=== PATIENT | female | born 1975 | race Caucasian/White ===

== ENCOUNTER 2017-03-02 16:00 | Observation (INO) ==
[2017-03-02] MEDS ORDERED: Aspirin 81 MG TAB.CHEW PO ONE (16:03)
--- NOTE | 2017-03-02 16:10 | Emergency Department Note ---
Disposition Clinical Impression: Chest pain Qualifiers: Chest pain type: unspecified Qualified Code(s): R07.9 - Chest pain, unspecified Disposition: Admitted As Inpatient Condition: Fair Time of Disposition: 16:16 Chest Pain HPI - General Stated Complaint: CP Time Seen by Provider: 03/02/17 16:03 Source: patient Mode of arrival: ambulatory Limitations: no limitations Vital Signs Reviewed: Yes Nursing Notes Reviewed: Yes - History of Present Illness HPI Narrative: Nontoxic-appearing 41-year-old female presents for evaluation of substernal chest pain that radiates into the interscapular region and left upper extremity. Symptoms began earlier this morning and have been persistent. Symptoms began as she was walking outside to get into her car to go to work. This was shortly thereafter accompanied with a sensation of palpitations. She complains of nausea and several episodes of diaphoresis as well. She denies any pleuritic component to this chest pain. She denies any fever, upper respiratory symptoms, cough, hemoptysis, vomiting. She denies any known aggravating or alleviating factors. Pt complaint: chest pain Onset (ago): hour(s) (Earlier this morning) Duration: constant Onset: during rest Pain Location: substernal Severity: severe Severity scale (1-10): 8 Quality: sharp Pain Radiation: LUE, other (Interscapular) Improves with: nothing Worsens with: nothing Associated symptoms: Reports: nausea, diaphoresis, palpitations. Denies: vomiting, dyspnea, cough - Related Data Home Medications Medication Instructions Recorded Confirmed Acetaminophen [Tylenol] 1,000 mg PO BID PRN 07/27/16 07/27/16 Biotin 1 mg PO DAILY 07/27/16 07/27/16 Cyanocobalamin (Vitamin B-12) 1,000 mcg SL DAILY 07/27/16 07/27/16 [Vitamin B-12] Ibuprofen [Motrin] 800 mg PO BID 07/27/16 07/27/16 Ranitidine HCl [Zantac] 150 mg PO DAILY 07/27/16 07/27/16 Allergies Allergy/AdvReac Type Severity Reaction Status Date / Time Amoxicillin [From Augmentin] Allergy Rash Verified 03/02/17 16:12 celecoxib [From Celebrex] Allergy Rash Verified 03/02/17 16:12 clavulanic acid Allergy Rash Verified 03/02/17 16:12 [From Augmentin] codeine Allergy Rash Verified 03/02/17 16:12 [From Tylenol-Codeine #3] Hylan G-F 20 [From Synvisc] Allergy Blister Verified 03/02/17 16:12 naproxen [From Naprosyn] Allergy Rash Verified 03/02/17 16:12 rofecoxib [From Vioxx] Allergy Rash Verified 03/02/17 16:12 All systems ED: reviewed and negative except as stated. Constitutional: Denies: fever, chills, weakness, weight change Eyes: Denies: eye pain, eye discharge, vision change ENT ED: Denies: ear pain, throat pain, dental pain, hearing loss, epistaxis, congestion, dysphagia Cardiovascular: Reports: as per HPI, chest pain, palpitations. Denies: dyspnea on exertion, edema, syncope Respiratory: Denies: cough, dyspnea, wheezes, hemoptysis, stridor Gastrointestinal: Denies: abdominal pain, nausea, vomiting, diarrhea, constipation, hematemesis, melena, hematochezia Genitourinary: Denies: dysuria, frequency, hematuria, discharge Musculoskeletal: Denies: back pain, neck pain, arthralgia, myalgia Integumentary: Denies: rash, abrasion, lesions Neurological: Denies: headache, weakness, numbness, paresthesias, confusion, abnormal gait, vertigo Psychiatric: Denies: anxiety, depression, suicidal thoughts, homicidal thoughts , auditory hallucinations, visual hallucinations Endocrine: Denies: fatigue Hematological/Lymphatic: Denies: easy bleeding, easy bruising Allergic/Immunologic: Denies: facial swelling, urticaria Chest Pain PMH - Past Medical History Medical history: Reports: GERD, hyperlipidemia Surgical history: Reports: , cholecystectomy, orthopedic, other - Social History Smoking Status: Former smoker Alcohol use: Reports: recent Drug use: Reports: none Physical Exam - General Limitations: no limitations General appearance: alert, in no apparent distress - Head Head exam: atraumatic, normocephalic, normal inspection - Eye Eye exam: Present: normal appearance, PERRL, EOMI. Absent: nystagmus - ENT ENT exam: mucous membranes moist - Neck Neck exam: Present: normal inspection, full ROM, trachea midline - Chest Chest inspection: Present: normal inspection, symmetric chest wall rise. Absent : tenderness - Respiratory Respiratory exam: Present: normal lung sounds bilaterally. Absent: respiratory distress, wheezes, stridor, accessory muscle use, prolonged expiratory phase - Cardiovascular Cardiovascular exam: Present: regular rate, normal rhythm, normal heart sounds - Abdominal Exam Abdominal exam: Present: soft, Non-Tender, normal bowel sounds - Extremities Exam Extremities exam: Present: normal inspection, full ROM. Absent: tenderness, pedal edema - Neurological Exam Neurological exam: Present: alert, oriented X3 - Psychiatric Psychiatric exam: Present: normal affect, normal mood - Skin Skin exam: Present: warm, dry, intact, normal color Course Vital Signs Temperature 97.8 F 03/02/17 16:08 Pulse Rate 83 03/02/17 16:08 Respiratory Rate 18 03/02/17 16:08 Blood Pressure 126/92 03/02/17 16:08 O2 Sat by Pulse Oximetry 100 03/02/17 16:08 Temperature 97.8 F 03/02/17 16:08 Pulse Rate 83 03/02/17 16:08 Respiratory Rate 18 03/02/17 16:08 Blood Pressure 126/92 03/02/17 16:08 O2 Sat by Pulse Oximetry 100 03/02/17 16:08 Oxygen Delivery Oxygen Delivery Room Air Chest Pain - Medical Records Medical records reviewed: Yes I reviewed the patient's medical records. Ceferino - Ceferino Situation: Demographics, MOA Background: Presenting Complaint, Relevant PMH, Meds, & Allergies Assessment: Vital Signs, Course and respsone to treatment, Exam Concerns, Patient/Family Expectation, Pertinant Lab Results, Outstanding Labs Recommendation: Barrier(s) to disposition, Recommendation based on pending studies, treatments, or consults S.Larissa Report Given to: Dr. Pool De La Vega Repor Time: 16:16
--- NOTE | 2017-03-02 16:33 | Emergency Department Note ---
START Narrative - START START: For this encounter, I have reviewed the SPEECH SCIENTIST or PA documentation, treatment plan, and medical decision making; and I have had face to face time with this patient. Briefly, 41-year-old female presents emergency room with chest pain. 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 She woke up today and had some vomiting and nausea and diaphoresis. This transitioned into palpitations and chest pain. Pain radiated down into her left arm. She has no history of cardiac disease. She states she has a history of hypercholesterolemia. Currently she rates her pain 8 out of 10. Substernal radiates into the left arm and left neck. EKG is unremarkable. Plan at this time is to admit the patient to observation. I will give her nitroglycerin here. She received aspirin already. Patient needs to be admitted for further ACS workup. Patient was initially seen by the physician loan officer assistant. EKG shows a rate of 84. Normal sinus rhythm. Normal axis. NV interval 166. QRS 77. QTC 374. No signs of acute ischemia.
[2017-03-02] MEDS: Nitroglycerin 0.4 MG TAB.SUBL SL PRN ×2 (16:36→16:45)
[2017-03-02 16:55] LABS: Basophils # 0.1 K/mcL (0.0-0.2); Basophils % 0.6 %; Eosinophils # 0.2 K/mcL (0.0-0.6); Eosinophils % 2.1 %; Hematocrit 41.6 % (35.3-44.9); Immature Granulocytes % 0.6 % (0-4); Lymphocytes # 2.7 K/mcL (0.6-4.6); Lymphocytes % 31.1 %; Mean Corpuscular HGB Conc 33.7 g/dL (31.6-35.5); Mean Platelet Volume 9.8 fL (9.4-12.4); Monocytes # 0.8 K/mcL (0.0-1.3); Monocytes % 8.6 %; Platelet Count 337 K/mcL (140-400); Red Blood Count 4.52 M/mcL (3.82-4.97); Red Cell Distribution Width 11.9 % (11.5-14.5)
[2017-03-02 17:05] LABS: Prothrombin Time 10.4 Seconds (9.4-12.1)
[2017-03-02 17:07] LABS: Activated Partial Thrombo Time 34.1 Seconds (26.0-36.0)
[2017-03-02 17:12] LABS: BUN/Creatinine Ratio 11 (6-26); Blood Urea Nitrogen 9 mg/dL (7-20); Calcium 9.2 mg/dL (8.6-10.8); Carbon Dioxide 24 mEq/L (19-29); Chloride 108 mEq/L (98-109); Glucose 97 mg/dL (70-99); Osmolality,Calculated 289 (280-300); Potassium 3.9 mEq/L (3.5-4.5); Sodium 140 mEq/L (136-145); eGFR For African Americans > 60 (> 60); eGFR For Non-African Americans > 60 (> 60)
[2017-03-02] MEDS ORDERED: Acetaminophen 325 MG TABLET PO PRN (20:03)
[2017-03-02] MEDS ORDERED: Naloxone 0.4 MG/ML INJ IVP PRN (20:03)
[2017-03-02] MEDS ORDERED: Ondansetron 4 MG/2 ML VIAL IVP PRN (20:03)
[2017-03-02] MEDS ORDERED: *HR* Morphine 2 MG/ML SYRINGE IVP PRN (20:03)
[2017-03-02] MEDS ORDERED: SUMAtriptan succinate 50 MG TABLET PO PRN (20:05)
--- NOTE | 2017-03-02 20:09 | Internal Med History&Physical ---
Date of Encounter: 03/02/17 Time of Encounter: 20:07 Assessment and Plan (1) Chest pain Current visit: Yes Status: Acute Order CT scan of the chest to rule out dissection Continue telemetry, follow troponins, we will start aspirin once dissection has been ruled out If the CT scan is negative we will schedule stress test in the morning, hold propranolol for now Check a lipid panel in the morning, may continue morphine and nitroglycerin Omeprazole for GI prophylaxis and sequential compression devices for DVT prophylaxis, admitted for observation, full code. Time spent on this admission 45 minutes Qualifiers: Chest pain type: unspecified Qualified Code(s): R07.9 - Chest pain, unspecified (2) Hyperlipidemia Current visit: Yes Status: Acute Check lipid panel in the morning Qualifiers: Hyperlipidemia type: pure hypercholesterolemia Qualified Code(s): E78.00 - Pure hypercholesterolemia, unspecified; E78.0 - Pure hypercholesterolemia (3) GERD (gastroesophageal reflux disease) Current visit: Yes Status: Acute Qualifiers: Esophagitis presence: without esophagitis Qualified Code(s): K21.9 - Gastro -esophageal reflux disease without esophagitis (4) Migraines Current visit: Yes Status: Acute Hold propanolol for stress test in the morning Qualifiers: Migraine type: without aura Status migrainosus presence: without status migrainosus Intractability: not intractable Qualified Code(s): G43.009 - Migraine without aura, not intractable, without status migrainosus (5) Asthma Current visit: Yes Status: Acute Qualifiers: Asthma severity: unspecified severity Asthma persistence: unspecified Asthma complication type: unspecified Qualified Code(s): J45.909 - Unspecified asthma, uncomplicated Internal Medicine - H&P: HPI Chief complaint: Chest pain Admitted From: Emergency Dept History of present illness: Ms. Lr is a 41 year old female with a past medical history of hyperlipidemia , GERD, remote history of tobacco use, depression, anxiety, started complaining of chest pain pressure-like midsternal [place] today at 9 AM 8 out of 10 in intensity that radiated to her interscapular area and is still present. Received nitroglycerin in the partially relieved the pain accompanied with diaphoresis and nausea. Chest x-ray and EKG are unremarkable, troponin is normal. So the patient has not gone away patient agreed to have a CT scan of the chest to rule out a dissection. Denies any other complaint at the moment Past Med Surg Social Fam HX - Past Medical History Medical history: GERD, hyperlipidemia, other (Remote history of tobacco use, depression, anxiety, asthma, fibromyalgia, migraines) Psychiatric history: no psych history - Past Surgical History Surgical History: , cholecystectomy, orthopedic, other, other (Left cubital stress fracture, tubal ligation, left shoulder and right knee arthroscopies) - Social History Smoking Status: Former smoker Smokeless Tobacco Status: No Alcohol use: recent Drug use: none - Family History Father Hx Family Cardiac Disorders: Yes (HI) - Additional Family History Additional family history: Father who had a myocardial infarction at the age of 42, brother with heart disease Internal Medicine - H&P: Meds Acetaminophen [Tylenol] 1,000 mg PO QAM 07/27/16 [History] Biotin 1 mg PO DAILY 07/27/16 [History] Acetaminophen [Tylenol] 1,000 mg PO Q8H PRN 03/02/17 [History] Metaxalone [Skelaxin] 800 mg PO TID PRN 03/02/17 [History] Multivitamin [One Daily Essential] 1 each PO DAILY 03/02/17 [History] Omeprazole [PriLOSEC] 40 mg PO DAILY 03/02/17 [History] Ondansetron ODT [Zofran ODT] 4 mg PO Q8H PRN 03/02/17 [History] Propranolol HCl 40 mg PO BID 03/02/17 [History] SUMAtriptan succinate [Imitrex] 50 mg PO Q2H PRN MDD 100 mg 03/02/17 [History] 3 Allergy/AdvReac Type Severity Reaction Status Date / Time Amoxicillin [From Augmentin] Allergy Rash Verified 03/02/17 16:12 celecoxib [From Celebrex] Allergy Rash Verified 03/02/17 16:12 clavulanic acid Allergy Rash Verified 03/02/17 16:12 [From Augmentin] codeine Allergy Rash Verified 03/02/17 16:12 [From Tylenol-Codeine #3] Hylan G-F 20 [From Synvisc] Allergy Blister Verified 03/02/17 16:12 naproxen [From Naprosyn] Allergy Rash Verified 03/02/17 16:12 rofecoxib [From Vioxx] Allergy Rash Verified 03/02/17 16:12 All Systems PM: A 10-system review of systems was performed and is negative for pertinent findings except as documented above in the HPI. Review of systems: No shortness of breath, no dizziness, other systems out of the 10 reviewed were negative - Constitutional Vitals: Temp Pulse Resp BP Pulse Ox 97.8 F 80 17 109/71 95 03/02/17 19:52 03/02/17 19:52 03/02/17 19:52 03/02/17 19:52 03/02/17 19:52 General appearance: Present: A&O X 3 - Head Head exam: Present: atraumatic, normocephalic - Eye Eye exam: Present: PERRL, conjuntiva pink, sclera anicteric Pupils: Present: PERRL - Neck Neck exam general surgery: Present: supple, trachea midline. Absent: lymphadenopathy - Respiratory Respiratory exam: Present: CTAB. Absent: accessory muscle use, rales, rhonchi, wheezes - Cardiovascular Cardiovascular exam: Present: RRR, +S1, +S2. Absent: diastolic murmur, gallop, rubs, systolic murmur - GI/Abdominal GI/Abdominal exam: Present: normal bowel sounds, soft, no peritoneal signs. Absent: distended, tenderness - Extremities Exam Extremities exam: Present: warm, radial pulses palpable and symmetrical. Absent : calf tenderness, cyanotic, pedal edema - Neurological Exam Neurological exam: Present: CN II-XII intact, oriented X3, no focal deficits. Absent: pronater drift, facial droop, speech deficit - Skin Skin exam: Present: dry, intact Internal Med - H&P Results - Labs CBC & Chem 7: 03/02/17 16:33 03/02/17 16:33
[2017-03-02] MEDS ORDERED: Nitroglycerin 0.4 MG TAB.SUBL SL PRN (20:12)
[2017-03-02] MEDS ORDERED: 0.9 % Sodium Chloride 1,000 ML IVC SCH (20:15)
[2017-03-03] MEDS ORDERED: *HR* Morphine 2 MG/ML SYRINGE IVP PRN (00:12)
[2017-03-03] MEDS ORDERED: *HR* Morphine 2 MG/ML SYRINGE ONE (00:16)
[2017-03-03 03:16] LABS: Basophils % 0.3 %; Eosinophils # 0.3 K/mcL (0.0-0.6); Eosinophils % 2.8 %; Hematocrit 36.5 % (35.3-44.9); Immature Granulocytes % 0.3 % (0-4); Lymphocytes # 3.6 K/mcL (0.6-4.6); Mean Corpuscular Hemoglobin 31.2 pg (28.0-33.3); Mean Corpuscular Volume 91.7 fL (83.0-100.0); Mean Platelet Volume 9.9 fL (9.4-12.4); Monocytes # 0.8 K/mcL (0.0-1.3); Monocytes % 9.5 %; Platelet Count 270 K/mcL (140-400); Red Blood Count 3.98 M/mcL (3.82-4.97); Red Cell Distribution Width 11.9 % (11.5-14.5); Segmented Neutrophils % 46.1 %
[2017-03-03 03:22] LABS: Hemoglobin 12.4 g/dL (11.5-15.4)
[2017-03-03 03:33] LABS: BUN/Creatinine Ratio 13 (6-26); Blood Urea Nitrogen 10 mg/dL (7-20); Calcium 8.8 mg/dL (8.6-10.8); Carbon Dioxide 23 mEq/L (19-29); Chloride 109 mEq/L (98-109); Chol/HDL Ratio 5.2 (0-4.9); Cholesterol 182 mg/dL (< 200); Glucose 97 mg/dL (70-99); HDL Cholesterol 35 mg/dL (40-59); LDL Cholesterol,Calculated 107 mg/dL (0-99); Osmolality,Calculated 289 (280-300); Potassium 3.8 mEq/L (3.5-4.5); Sodium 140 mEq/L (136-145); Triglycerides 198 mg/dL (< 150); eGFR For African Americans > 60 (> 60); eGFR For Non-African Americans > 60 (> 60)
[2017-03-03] MEDS ORDERED: Regadenoson 0.4 MG/5 ML SYRINGE IVP ONE (06:00)
--- NOTE | 2017-03-03 08:15 | Electrocardiograph Report ---
[place] [id number] Test Date: 2017-03-02 Pat Name: Jeniffer Lr Department: 104 Room: 3B Gender: F [employer] Drying Machine Operator: TAVO : 1975 Requested By: Job Martin Order Number: [id number] Reading MD: Trinity Almeida Measurements Intervals [place] Rate: 84 P: 11 W[place]: 166 QRS: 53 QRSD: 77 T: 26 QT: 333 QTc: 374 Interpretive Statements SINUS RHYTHM WITH SINUS ARRHYTHMIA Electronically Signed On 03-03-2017 8:13:59 EDT by Trinity Almeida
[2017-03-03 11:57] VITALS: BP 111/74
--- NOTE | 2017-03-03 13:07 | Discharge Summary ---
Date of Encounter: 03/03/17 Time of Encounter: 13:04 - Discharge Diagnosis (1) Chest pain Priority: Primary Status: Ruled-out Qualifiers: Chest pain type: unspecified Qualified Code(s): R07.9 - Chest pain, unspecified (2) GERD (gastroesophageal reflux disease) Priority: Secondary Status: Acute Qualifiers: Esophagitis presence: without esophagitis Qualified Code(s): K21.9 - Gastro -esophageal reflux disease without esophagitis (3) Migraines Priority: Secondary Status: Acute Qualifiers: Migraine type: without aura Status migrainosus presence: without status migrainosus Intractability: not intractable Qualified Code(s): G43.009 - Migraine without aura, not intractable, without status migrainosus - Discharge Medications Prescriptions: Aspirin Enteric Coated [Aspirin EC] 81 mg PO DAILY #30 tablet. Home Medications: Acetaminophen [Tylenol] 1,000 mg PO QAM 07/27/16 [History] Biotin 1 mg PO DAILY 07/27/16 [History] Acetaminophen [Tylenol] 1,000 mg PO Q8H PRN 03/02/17 [History] Metaxalone [Skelaxin] 800 mg PO TID PRN 03/02/17 [History] Multivitamin [One Daily Essential] 1 each PO DAILY 03/02/17 [History] Omeprazole [PriLOSEC] 40 mg PO DAILY 03/02/17 [History] Ondansetron ODT [Zofran ODT] 4 mg PO Q8H PRN 03/02/17 [History] Propranolol HCl 40 mg PO BID 03/02/17 [History] SUMAtriptan succinate [Imitrex] 50 mg PO Q2H PRN MDD 100 mg 03/02/17 [History] Aspirin Enteric Coated [Aspirin EC] 81 mg PO DAILY #30 tablet. 03/03/17 [Rx] Allergies/Adverse Reactions: 3 Allergy/AdvReac Type Severity Reaction Status Date / Time Amoxicillin [From Augmentin] Allergy Rash Verified 03/02/17 16:12 celecoxib [From Celebrex] Allergy Rash Verified 03/02/17 16:12 clavulanic acid Allergy Rash Verified 03/02/17 16:12 [From Augmentin] codeine Allergy Rash Verified 03/02/17 16:12 [From Tylenol-Codeine #3] Hylan G-F 20 [From Synvisc] Allergy Blister Verified 03/02/17 16:12 naproxen [From Naprosyn] Allergy Rash Verified 03/02/17 16:12 rofecoxib [From Vioxx] Allergy Rash Verified 03/02/17 16:12 Procedures/tests Complete & Pending: Procedures Performed prior 72 hours Category Date Time Status CT angio abdomen pelvis [CT] Stat Cat Scan 03/02/17 20:[address] angio chest [CT] Stat Cat Scan 03/02/17 20:02 Completed NM migdalia perf SPECT multi [NM] Routine Exams 03/02/17 20:07 Taken SP pharm nuclear stress Routine Y 03/03/17 07:15 Completed Date of admission: 03/02/17 17:45 Primary care physician: Negin Garcia - Patient Status Disposition: Home, Self-Care Condition: Good Overall status at discharge: patient is back to baseline - Discharge Instructions Follow Up With: Rita Gonzalez DO [Primary Care Provider] - Forms: ED Satisfaction Letter - Diet and Activity Activity: increase activity as tolerated Diet: low salt diet Hospital course: Ms. Lr is a 41 year old female with a past medical history of hyperlipidemia , GERD, remote history of tobacco use, depression, anxiety, chroni csinus arrythamia pt presented to ER y/d with Left chest pain, radiating to her left shoulder and back. 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 Cheched her serial troponin which were negative. She had stress test done which came as negative for any ischemia. Her LDL was 107, with her significant FH of CAD, suggested to go on Statins at low dose and also recommend to take ASA. She wants to talk to PCP about statins. Will d/c her home in stable condition today. - Time Spent with Patient Total time spent providing and/or coordinating discharge services: - Constitutional Vitals: Temp Pulse Resp BP Pulse Ox 98.8 F 74 17 111/74 96 03/03/17 11:55 03/03/17 11:55 03/03/17 11:55 03/03/17 11:55 03/03/17 11:55 General appearance: Present: A&O X 3 - Head Head exam: Present: atraumatic, normal inspection - Neck Neck exam general surgery: Present: supple - Respiratory Respiratory exam: Present: CTAB. Absent: accessory muscle use, rales, rhonchi, wheezes - Cardiovascular Cardiovascular exam: Present: RRR, +S1, +S2. Absent: diastolic murmur, gallop, rubs, systolic murmur - GI/Abdominal GI/Abdominal exam: Present: soft. Absent: rebound, rigid, tenderness - Extremities Exam Extremities exam: Absent: calf tenderness, pedal edema, tenderness - Back Exam Back exam: Absent: CVA tenderness (L), CVA tenderness (R) - Neurological Exam Neurological exam: Present: alert, oriented X3
== END 2017-03-03 14:40 | disposition home or self-care (01) ==
LOC: 3BNU 16:00 → EMEROO 16:00 → 3BNU 18:53
PROVIDERS: ADMIT Internal Medicine; ATTEND Registered Nurse